=== PATIENT | female | born 1990 | race Caucasian/White ===

== ENCOUNTER 2018-10-13 05:30 | Inpatient (IN) | payer MEDICAID ==
[2018-10-13] MEDS ORDERED: Butorphanol Tartrate 1 MG/ML VIAL SLOW IVP PRN (15:27)
[2018-10-13] MEDS ORDERED: NS / Oxytocin 40 units/1000ml 1,000 ML IV PRN (15:27)
[2018-10-13] MEDS ORDERED: Promethazine HCl 25 MG/ML VIAL IM PRN ×3 (15:27→22:04)
[2018-10-13] MEDS ORDERED: HYDROcodone/Acetaminophen 5/325 mg Tablet PO PRN (15:27)
[2018-10-13] MEDS ORDERED: Ibuprofen 800 MG TAB PO PRN (15:27)
[2018-10-13] MEDS ORDERED: hydrALAZINE 20 MG/ML VIAL SLOW IVP PRN ×2 (15:27→22:04)
[2018-10-13] MEDS ORDERED: Misoprostol 200 MCG TAB PR PRN (15:27)
[2018-10-13] MEDS ORDERED: Methylergonovine 0.2 MG/ML VIAL IM PRN (15:27)
[2018-10-13] MEDS ORDERED: NS w/ Oxytocin 10 units 500 ML IV SCH ×2 (15:27)
[2018-10-13] MEDS ORDERED: Carboprost 250 MCG/ML AMP IM PRN (15:27)
[2018-10-13] MEDS ORDERED: Ondansetron PF 4 MG/2 ML Vial IVP PRN ×3 (15:27→22:04)
[2018-10-13] MEDS ORDERED: Diphenoxylate HCl/Atropine Tablet PO PRN (15:27)
[2018-10-13] MEDS ORDERED: Lidocaine 1% (PF) 30 ML VIAL SC PRN (15:27)
[2018-10-13] MEDS ORDERED: Lactated Ringer's 1,000 ML IV SCH (15:27)
[2018-10-13 15:32] VITALS: BMI 30.4
[2018-10-13 15:47] LABS: Hemoglobin 11.1 g/dL (12.0-16.0); Mean Corpuscular HGB CONC 34.2 g/dL (32.0-36.0); Mean Corpuscular Hemoglobin 27.8 pg (27.0-31.0); Mean Corpuscular Volume 81.1 fL (78.0-98.0); Mean Platelet Volume 7.4 fL (7.4-10.4); Platelet Count 184 thou/uL (130-400); RBC Distribution Width 13.2 % (11.5-14.5); White Blood Cell (WBC) Count 6.6 thou/uL (4.8-10.8)
[2018-10-13] MEDS ORDERED: Penicillin G Potassium 5 MILL.UNITS in Sodium Chloride 0.9% 100 ML IVPB SCH (16:00)
[2018-10-13 16:26] LABS: HBSAg Index 0.35 S/CO (0-0.99); Hep B Surf Ag Non-Reactive S/CO (NonReactive)
[2018-10-13 16:27] LABS: Syphilis Antibody Nonreactive (Nonreactive); Syphilis Antibody Index 0.02 S/CO (<1.00 Non-Reactive)
[2018-10-13] MEDS ORDERED: PHENYLEPHRINE-NS 100 MCG/ML 10 ML SYRINGE ONE (16:57)
[2018-10-13] MEDS ORDERED: Ondansetron PF 4 MG/2 ML Vial ONE ×2 (16:57→20:05)
[2018-10-13] MEDS ORDERED: Ketorolac Tromethamine 30 MG/ML VIAL ONE ×2 (16:57→20:05)
[2018-10-13] MEDS ORDERED: ePHEDrine 50 MG/ML VIAL ONE (16:57)
[2018-10-13] MEDS ORDERED: CEFAZOLIN 2 GM in Premix Bag 1 BAG IVPB SCH (17:00)
[2018-10-13] MEDS ORDERED: ceFAZolin 1 GM/D5W 1 GM in Premix Bag 1 BAG IVPB SCH (17:00)
[2018-10-13] MEDS ORDERED: Naloxone HCl 0.4 mg/ml Vial IVP PRN (18:41)
[2018-10-13] MEDS ORDERED: Promethazine HCl 25 MG SUPP PR PRN (18:41)
[2018-10-13] MEDS ORDERED: L&D-Morphine 4 MG/ML VIAL SLOW IVP PRN (18:41)
[2018-10-13] MEDS ORDERED: HYDROmorphone 2 MG/ML VIAL SLOW IVP PRN (18:41)
[2018-10-13] MEDS ORDERED: Ketorolac Tromethamine 30 MG/ML VIAL IVP PRN (18:41)
[2018-10-13] MEDS ORDERED: Naloxone HCl 0.4 mg/ml Vial IV PRN (18:41)
[2018-10-13] MEDS ORDERED: Meperidine HCl/PF 25 MG/ML VIAL SLOW IVP PRN (18:41)
[2018-10-13] MEDS ORDERED: Ondansetron HCl/PF 4 MG/2 ML Vial IVP PRN (18:41)
[2018-10-13] MEDS ORDERED: Communication Order-Pharmacy FS SCH (18:45)
[2018-10-13] MEDS ORDERED: Ketorolac Tromethamine 30 MG/ML VIAL IVP SCH (18:45)
[2018-10-13] MEDS ORDERED: MORPHINE 5 MG/10 ML PF VIAL ONE (19:41)
[2018-10-13] MEDS ORDERED: ePHEDrine/0.9% NaCl/PF SYRINGE 50 mg/10 ml ONE (19:56)
[2018-10-13] MEDS ORDERED: Penicillin G 2.5 MILL.units 2.5 MILL.UNITS in Premix Bag 1 BAG IVPB SCH (20:00)
[2018-10-13] MEDS ORDERED: Oxytocin 10 UNITS/ML VIAL ONE (20:01)
[2018-10-13] MEDS ORDERED: Phenylephrine HCL 10 MG/ML VIAL ONE (20:03)
[2018-10-13] MEDS ORDERED: Meperidine HCl/PF 25 MG/ML VIAL IM PRN (22:04)
[2018-10-13] MEDS ORDERED: Lanolin Ointment 7 GM TUBE TOP PRN (22:04)
[2018-10-13] MEDS ORDERED: diphenhydrAMINE 25 MG CAP PO PRN (22:04)
[2018-10-13] MEDS ORDERED: Bisacodyl 10 MG SUPP PR PRN (22:04)
[2018-10-13] MEDS ORDERED: NS / Oxytocin 40 units/1000ml 1,000 ML IV SCH (22:04)
[2018-10-13] MEDS: diphenhydrAMINE 50 MG/ML VIAL IVP PRN (22:40)
[2018-10-14] MEDS: Naloxone HCl 0.4 mg/ml Vial IVP PRN ×3 (00:20→03:32)
[2018-10-14] MEDS: diphenhydrAMINE 50 MG/ML VIAL IVP PRN ×2 (02:39→06:28)
[2018-10-14] MEDS ORDERED: Famotidine/PF 20 mg/2ml Vial SLOW IVP SCH (04:30)
[2018-10-14 06:15] LABS: Mean Corpuscular HGB CONC 34.8 g/dL (32.0-36.0); Mean Corpuscular Hemoglobin 28.6 pg (27.0-31.0); Mean Corpuscular Volume 82.1 fL (78.0-98.0); Mean Platelet Volume 7.6 fL (7.4-10.4); Platelet Count 168 thou/uL (130-400); Red Blood Cell (RBC) Count 3.51 mill/uL (4.20-5.40); White Blood Cell (WBC) Count 9.5 thou/uL (4.8-10.8)
[2018-10-14] MEDS ORDERED: HYDROcodone/Acetaminophen 5/325 mg Tablet PO PRN (06:45)
[2018-10-14] MEDS: Docusate Calcium (SURFAK) 240 MG CAP PO SCH ×2 (09:30→20:32)
[2018-10-14] MEDS: Prenatal Vitamin 1 TAB PO SCH (09:30)
[2018-10-14] MEDS: Ferrous Sulfate 325 MG TAB PO SCH ×2 (09:31→17:34)
[2018-10-14] MEDS: Adacel (T-DAP) 0.5 ML SYRINGE IM ONE (09:31)
[2018-10-14] MEDS ORDERED: Hydrocerin (Eucerin) Cream 120 gm Jar TOP PRN (10:16)
[2018-10-14] MEDS ORDERED: ONDANSETRON HCL IVPB SCH (10:30)
[2018-10-14] MEDS ORDERED: SODIUM CHLORIDE 0.9% IVPB SCH (10:30)
--- NOTE | 2018-10-14 10:58 | OP ---
DATE OF PROCEDURE: 10/13/2018 [employer] SURGEON: Wanda Katz DO. PROCEDURE PERFORMED: Primary low transverse section. PREOPERATIVE DIAGNOSES: 1. Term intrauterine . 2. Cholestasis of . 3. Breech presentation. 4. Late care starting at 36 weeks. POSTOPERATIVE DIAGNOSES: 1. Term intrauterine , delivered. 2. Transverse presentation. 3. Cholestasis of . 4. Late care starting at 36 weeks. ANESTHESIA: Spinal. INDICATIONS: This is a 28-year-old G3, P2-0-0-2 at 38 and 5 weeks gestation, who initially presented for induction of labor for cholestasis of and was found to be in the breech presentation. Thus, the patient was taken back for a primary low transverse section. DESCRIPTION OF PROCEDURE: After risks, benefits, and alternatives were explained to the patient, she gave informed consent. Preoperative antibiotics included cefazolin 2 g IV. The patient was taken to the operating room and spinal anesthesia was initiated. She was placed in the supine position with a left tilt and prepped and draped in the usual sterile fashion. A Pfannenstiel incision was made with a scalpel and carried down to the level of the fascia, which was sharply nicked. The fascial cut was extended bilaterally with Mitchell scissors. The inferior and superior edges of the cut fascial edges were elevated with Blaine clamps and the underlying rectus muscles were sharply and bluntly dissected free. The recti were divided digitally and retracted manually. The peritoneum was entered bluntly and retracted manually. Bladder blade was placed. A low transverse score was made with a scalpel and the uterus was entered in the midline with the scalpel. Clear fluid was seen. The hysterotomy was extended manually. The was noted to be in transverse presentation. An internal version was performed and the infant was delivered in the vertex position with vacuum attempt x1. There were no pop offs and the vacuum was in use for less than 15 seconds. Mouth and nares were bulb suctioned. Cord was clamped and cut and a grossly normal male infant was handed to the waiting nurse. Cord blood was obtained. Cord gas was also obtained and sent for analysis. The placenta was extracted and found to be intact with a 3-vessel cord. The uterus was externalized and the endometrium was curetted with a dry lap. The bladder blade was replaced and the uterus was closed with a running locking #1 chromic suture, followed by a running nonlocking #1 chromic imbricating suture as well as several [id number]. Bleeding was still noted throughout the hysterotomy and Floseal was used for additional hemostasis. The abdomen was irrigated with saline and suctioned free of clots. The uterus was internalized and hysterotomy was again noted to be hemostatic. The peritoneum was closed using 3-0 Vicryl in a running nonlocking fashion. The fascia was closed with a running locking 0 PDS suture. The subcutaneous tissue was irrigated and bleeders were cauterized. The subcutaneous tissue was brought together using 2-0 plain gut. The skin was approximated with alma and a pressure dressing was placed. All counts were correct. The patient tolerated the procedure well and was taken to recovery room in stable condition. ESTIMATED BLOOD LOSS: 750 mL COMPLICATIONS: None. SPECIMENS: Cord blood sent to lab for blood type and cord gas sent for analysis. FINDINGS: Grossly normal male . Grossly normal placenta with 3-vessel cord. DRAINS: Harry to gravity, draining clear urine. Job ID: [id number] [facility]
[2018-10-14] MEDS: Ibuprofen 800 MG TAB PO SCH ×2 (14:26→22:18)
[2018-10-14] MEDS: HYDROcodone/Acetaminophen 5/325 mg Tablet PO PRN (20:32)
[2018-10-14] MEDS: Simethicone Chewable 80 MG TAB PO PRN (20:34)
[2018-10-15] MEDS: HYDROcodone/Acetaminophen 5/325 mg Tablet PO PRN ×4 (01:06→20:08)
[2018-10-15] MEDS: Ibuprofen 800 MG TAB PO SCH ×3 (06:30→21:33)
[2018-10-15] MEDS: Prenatal Vitamin 1 TAB PO SCH (08:15)
[2018-10-15] MEDS: Docusate Calcium (SURFAK) 240 MG CAP PO SCH ×2 (08:16→21:33)
[2018-10-15] MEDS: Simethicone Chewable 80 MG TAB PO PRN ×2 (08:16→20:10)
[2018-10-15] MEDS: Ferrous Sulfate 325 MG TAB PO SCH ×2 (09:21→16:50)
[2018-10-16] MEDS: Ibuprofen 800 MG TAB PO SCH ×3 (05:14→21:09)
[2018-10-16] MEDS: HYDROcodone/Acetaminophen 5/325 mg Tablet PO PRN ×3 (05:15→21:19)
[2018-10-16] MEDS: Simethicone Chewable 80 MG TAB PO PRN ×2 (05:19→09:19)
[2018-10-16] MEDS: Ferrous Sulfate 325 MG TAB PO SCH ×2 (08:03→16:44)
[2018-10-16] MEDS: Prenatal Vitamin 1 TAB PO SCH (09:19)
[2018-10-16] MEDS: Docusate Calcium (SURFAK) 240 MG CAP PO SCH ×2 (09:19→21:09)
[2018-10-16] MEDS: Adacel (T-DAP) 0.5 ML SYRINGE IM ONE (14:33)
[2018-10-17] MEDS: HYDROcodone/Acetaminophen 5/325 mg Tablet PO PRN ×2 (04:21→11:06)
[2018-10-17] MEDS: Ibuprofen 800 MG TAB PO SCH ×2 (05:55→14:37)
[2018-10-17] MEDS: Ferrous Sulfate 325 MG TAB PO SCH ×2 (07:34→14:38)
[2018-10-17 08:40] VITALS: BP 94/55; TEMP 97.9
[2018-10-17] MEDS: Docusate Calcium (SURFAK) 240 MG CAP PO SCH (11:06)
[2018-10-17] MEDS: Prenatal Vitamin 1 TAB PO SCH (11:06)
[2018-10-17] MEDS: Simethicone Chewable 80 MG TAB PO PRN (11:10)
== END 2018-10-17 17:40 | disposition home or self-care (01) | DRG 786 ==
LOC: L&D 10:10 → 3SW 22:13
PROVIDERS: ADMIT Family Medicine; ATTEND Family Medicine
PROC: 10D00Z1 Extraction of Products of Conception, Low, Open Approach (ICD-10-PCS; principal; 2018-10-13)
DX: O26.62 Liver and biliary tract disorders in childbirth (principal); K83.1 Obstruction of bile duct; O32.1XX0 Maternal care for breech presentation, not applicable or unspecified; Z3A.38 38 weeks gestation of pregnancy; Z37.0 Single live birth
CPT/HCPCS: 36415; 51702; 76815; 82805; 85027; 86780; 86850; 86900; 86901; 87340; 88307; J0690; J1200; J1885; J2274; J2310; J2370; J2405; J2540; J2590; J3490; S0028

== ENCOUNTER 2021-07-28 14:42 | Emergency (ER) | payer SELFPAY ==
[2021-07-28 16:15] LABS: Hemoglobin 10.2 g/dL (12.0-16.0); Mean Corpuscular HGB CONC 34.4 g/dL (32.0-36.0); Mean Corpuscular Hemoglobin 30.1 pg (27.0-31.0); Mean Corpuscular Volume 87.4 fL (78.0-98.0); Mean Platelet Volume 6.8 fL (7.4-10.4); Platelet Count 217 thou/uL (130-400); RBC Distribution Width 12.4 % (11.5-14.5); Red Blood Cell (RBC) Count 3.39 mill/uL (4.20-5.40)
[2021-07-28] MEDS ORDERED: Acetaminophen 325 MG TAB ONE (16:29)
[2021-07-28 16:33] LABS: Band 33 % (5-11); Lymphocytes 10 % (21-51); MDiff Complete? YES; Monocytes 8 % (0-10); Neutrophil 48 % (42-75); Platelet Morphology Comment Appears Adequate; Polychromasia SLIGHT = 2-3 cells (100X) (0-2/hpf)
[2021-07-28 16:42] LABS: ALT (SGPT) 24 U/L (8-55); AST (SGOT) 17 U/L (5-34); Albumin 2.5 g/dL (3.5-5.0); Alkaline Phosphatase 147 U/L (40-110); Anion Gap 10 mmol/L (10-20); BUN (Urea Nitrogen) 5 mg/dL (7.0-18.7); Bilirubin, Total 0.8 mg/dL (0.2-1.2); Calc. Creatinine Clearance 0 mL/min (70-130); Calcium 8.6 mg/dL (7.8-10.44); Carbon Dioxide 26 mmol/L (22-29); Chloride 104 mmol/L (98-107); Globulin 3.5 g/dL (2.4-3.5); Glucose 78 mg/dL (70-105); Lipase Less than 4 U/L (8-78); Potassium 4.3 mmol/L (3.5-5.1); Sodium 136 mmol/L (136-145)
[2021-07-28 17:58] LABS: Bacteria/HPF 3+ HPF (None Seen); Bilirubin Negative (Negative); Blood, Urine Negative (Negative); Clarity Clear (Clear); Glucose, Urine (Dipstick) Normal (Negative); Ketone, Urine Negative (Negative); Leukocyte 500 Leu/uL (Negative); Nitrite Negative (Negative); Protein, Urine (Dipstick) 20 mg/dL (Neg-Trace); RBC/HPF 0-3 HPF (0-3); Specific Gravity, Urine 1.009 (1.002-1.036); Squamous Epithelial 0-3 HPF (0-3); Urobilinogen 6 mg/dL (Less than 2); WBC/HPF 21-50 HPF (0-3); pH, Urine 6.5 (5.0-9.0)
[2021-07-28] MEDS ORDERED: cefTRIAXone\\ROCEPHIN 1 GM VIAL ONE (18:49)
[2021-07-28 19:07] LABS: Amphetamine Not Detected (NotDetected); Barbiturates Screen Not Detected (NotDetected); Benzodiazepine Screen Not Detected (NotDetected); Cocaine Metabolite Screen Not Detected (NotDetected); Methadone Not Detected (NotDetected); Methamphetamine Not Detected (NotDetected); Opiate Screen Not Detected (NotDetected); Oxycodone Screen Not Detected (NotDetected); Phencyclidine (PCP) Not Detected (NotDetected); THC/Cannabinoid Screen Not Detected (NotDetected); Tricyclic Screen Not Detected (NotDetected)
[2021-07-28 20:27] LABS: SARS-CoV-2 NAA Rapid Test DETECTED (NotDetected)
== END 2021-07-28 19:47 | disposition short-term general hospital (02) ==
LOC: ERS 14:42
DX: U07.1 COVID-19 (principal); R00.0 Tachycardia, unspecified; Z87.19 Personal history of other diseases of the digestive system
CPT/HCPCS: 71045; 80053; 80306; 81003; 81015; 83690; 84484; 85025; 85379; 93005; 96361; 96374; J0696; U0002